=== PATIENT | male | born 1935 | race Caucasian/White ===

== ENCOUNTER 2019-02-09 18:38 | Emergency (ER) | payer MEDICARE ==
[~2019-02-09] VITALS: Ht 180.3 cm; Wt 78.0 kg
[2019-02-09] MEDS ORDERED: DILTIAZEM ER180 M2 PO (18:53)
[2019-02-09] MEDS ORDERED: COUMADIN 3 MG TA3 MG PO (18:54)
[2019-02-09] MEDS ORDERED: TIROSINT88 MCG PO (18:54)
[2019-02-09] MEDS ORDERED: LANOXIN 0.25M0.25 M1 PO (18:55)
[2019-02-09 19:50] LABS: ABSOLUTE BASOPHILS 0.1 thou/uL (0.0-0.2); ABSOLUTE EOSINOPHILS 0.3 thou/uL (0.0-0.7); ABSOLUTE LYMPHOCYTES 1.1 thou/uL (0.8-5.3); ABSOLUTE MONOCYTES 0.6 thou/uL (0.0-1.2); ABSOLUTE NEUTROPHILS 3.1 thou/uL (1.6-8.1); BASOPHILS 1.3 %; EOSINOPHILS 5.8 %; HEMATOCRIT 38.2 % (42.0-52.0); HEMOGLOBIN 13.4 gm/dL (14.0-18.0); LYMPHOCYTES 21.8 %; MCH 32.1 pg (26.0-34.0); MCHC 35.1 g/dL (28.0-37.0); MCV 91.4 fL (80.0-100.0); MONOCYTES 11.9 %; MPV 7.3 fl. (7.2-11.1); NUCLEATED RBCS 0 /100WBC; PLATELET COUNT* 210 thou/uL (150-400); POLYS 59.2 %; RBC 4.18 mil/uL (4.50-6.00); RDW-CV 14.5 % (10.5-14.5); WBC 5.2 thou/uL (4.0-11.0)
[2019-02-09 20:12] LABS: CALCIUM 8.2 mg/dL (8.5-10.1); POTASSIUM 4.3 mmol/L (3.5-5.1)
[2019-02-09 20:17] LABS: ALBUMIN 3.5 g/dL (3.4-5.0); TOTAL BILIRUBIN 0.6 mg/dL (<0.1-1.0); TOTAL PROTEIN 6.6 g/dL (6.4-8.2)
[2019-02-09] MEDS ORDERED: LASIX 40 MG TAB40 MG PO (20:50)
[2019-02-09] MEDS ORDERED: POTASSIUM20 PO (20:50)
[2019-02-09 21:15] VITALS: BP 116/62
== END 2019-02-09 21:17 | disposition home or self-care (01) ==
LOC: M.ERS 18:38
PROVIDERS: Physician Assistant
DX: J81.1 Chronic pulmonary edema (principal); I48.91 Unspecified atrial fibrillation